=== PATIENT | male | born 1995 | race African-American/Black ===

== ENCOUNTER 2022-01-21 16:19 | Emergency (ER) | payer OTHER, SELFPAY ==
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
[2022-01-21 16:22] VITALS: BP 148/78; PULSE 101; RESP 18; TEMP 36.6; O2SAT 98
--- NOTE | 2022-01-21 16:53 | PC.NURSE ---
Pt refuses to have IV placed or labs drawn. States I don't do needles .
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
[2022-01-21] MEDS: NAPROXEN 500 MG TABLET PO (17:20)
== END 2022-01-21 18:30 | disposition home or self-care (01) ==
PROVIDERS: Emergency Provider Nurse Practitioner Family
DX: S70.01XA Contusion of right hip, initial encounter (principal); V63.5XXA Driver of heavy transport vehicle injured in collision with car, pick-up truck or van in traffic accident, initial encounter
CPT/HCPCS: 73502; 99283; A9270